=== PATIENT | female | born 1980 | race Two or more races ===

== ENCOUNTER 2016-07-15 11:31 | Day surgery (SDC) | payer OTHER ==
[~2016-07-15 11:31] MED LIST: IOPAMIDOL 300 (61%) 30 ML SDV ONE; IV START KIT ONE; LACTATED RINGERS 1,000 ML ONE
[2016-07-15] MEDS ORDERED: PROPOFOL 20 ML IV ONE (11:32)
[2016-07-15] MEDS ORDERED: ROCURONIUM BROMIDE 10 MG/ML DOSE IV ONE (11:32)
[2016-07-15] MEDS ORDERED: LIDOCAINE 2% (MULTI DOSE) 10 ML VIAL ONE (11:32)
[2016-07-15] MEDS ORDERED: FENTANYL 100 MCG/2 ML VIAL ONE ×3 (11:33→13:34)
[2016-07-15] MEDS ORDERED: MIDAZOLAM HCL 1 MG/ML 2ML VIAL ONE (11:33)
[2016-07-15] MEDS ORDERED: METRONIDAZOLE 500 MG/NS 100 ML 500 MG in Premix (NS) 100 ml 1 EACH IV PRN (11:46)
[2016-07-15] MEDS ORDERED: CEFUROXIME SODIUM 1.5 GRAM 1.5 G in Premix (Water) 50 ml 1 EACH IV PRN (11:46)
[2016-07-15] MEDS ORDERED: LACTATED RINGERS 1,000 ML IV SCH ×2 (11:46→13:00)
[2016-07-15] MEDS ORDERED: LIDOCAINE 1% 2 ML VIAL ID PRN (11:46)
[2016-07-15] MEDS ORDERED: LIDOCAINE 1%/EPI 1:100,000 (MULTI DOSE) 30 ML VIAL ONE (12:11)
[2016-07-15] MEDS ORDERED: METRONIDAZOLE 500 MG/NS 100 ML 100 ML IV ONE (12:15)
[2016-07-15] MEDS ORDERED: CEFUROXIME SODIUM 1.5 GRAM 50 ML IV ONE (12:16)
[2016-07-15 12:31] LABS: ALB/GLOB RATIO 1.3 (>1.0); ALBUMIN 4.1 gm/dL (3.5-5.7); CALCIUM 8.9 mg/dL (8.6-10.3)
[2016-07-15] MEDS ORDERED: HYDROMORPHONE HCL 1 MG/ML SYRINGE IV PRN (12:50)
[2016-07-15] MEDS ORDERED: ONDANSETRON 4 MG/2ML 2 ML VIAL IV PRN ×2 (12:50→14:48)
[2016-07-15] MEDS ORDERED: MEPERIDINE 25 MG/ML SYRINGE IV PRN (12:50)
[2016-07-15] MEDS ORDERED: NALOXONE HCL 0.4 MG/ML VIAL IV PRN (12:50)
[2016-07-15] MEDS ORDERED: FENTANYL 100 MCG/2 ML VIAL IV PRN (12:50)
[2016-07-15] MEDS ORDERED: ATROPINE SULFATE 0.4 MG/1 ML VIAL IV PRN (12:50)
[2016-07-15] MEDS ORDERED: PROMETHAZINE HCL 25 MG/ML VIAL IM PRN (12:50)
[2016-07-15] MEDS ORDERED: DEXAMETHASONE SOD PHOS 4 MG/1 ML VIAL ONE (13:02)
[2016-07-15] MEDS ORDERED: GLYCOPYRROLATE 0.2 MG/ML 1ML VIAL ONE (13:30)
[2016-07-15] MEDS ORDERED: NEOSTIGMINE METHYLSULFATE 1 MG/ML DOSE ONE (13:30)
[2016-07-15] MEDS ORDERED: PROMETHAZINE HCL 25 MG/ML VIAL ONE (14:40)
[2016-07-15] MEDS ORDERED: OXYCODONE/ACETAMINOPHEN 5/325 MG TABLET PO PRN (14:48)
[2016-07-15] MEDS ORDERED: ONDANSETRON 4 MG/2ML 2 ML VIAL ONE (15:28)
--- NOTE | 2016-07-15 16:33 | OP ---
MIKAELA JOHN [id number] DATE OF : 1980 PREPROCEDURE DIAGNOSIS: Acute cholecystitis. POSTPROCEDURE DIAGNOSIS: Acute cholecystitis. PROCEDURE PERFORMED: LAPAROSCOPIC CHOLECYSTECTOMY. SURGEON: Dr. Romana Willoughby DEFLASH AND WASH OPERATOR: Gloria ANESTHESIA: General. FINDINGS: Chronically inflamed gallbladder at the neck. Bile spilled in the abdomen did not look infected. TECHNIQUE: The patient was brought back to the operating room and placed under general anesthesia. The abdomen was prepped and draped in sterile surgical fashion. Local anesthetic was placed just to the right of the umbilicus and a 15-blade scalpel was used to make a less than 1 cm transverse incision. A zero degree scope and 5 mm port were slowly entered into the abdomen. Insufflation was also attached. We carefully looked at all of the layers and once we were into the abdominal cavity the insufflation pushed the abdominal contents away and there was no damage to organs on entry. I then placed an 11 mm port subxiphoid and two 5 mm ports in the right upper quadrant laterally under direct visualization. We grasped the gallbladder and pushed it superiorly, and unfortunately the liver was so large we could not push it as far up as I would like. I used an additional grasper for retraction at the neck of the gallbladder. We were having difficulty with positioning of the bed. There was some tissue initially in the way. At first I dissected the cystic artery out of the surrounding tissue and it was going directly into the gallbladder. This was well-visualized and there was no aberrant branching. I did see that the common duct was well away from where we were at and I put two clips proximally and distally and I divided with Endo Huma. By this time they got the bed in a good position. I dissected around the cystic duct and placed two clips proximal and one distally and divided with Endo Huma. It looked like a giant duct, so this might possibly just have been the distal part of the gallbladder, but it also frightened me a little bit with the width of it. I continued to examine around the area and there is no other duct, and this was going right into the gallbladder, so it was the correct duct. I used hook cautery and took the gallbladder off of the liver bed without issue and put it in an ENDOCATCH bag, and then used the suction irrigation to remove all the spilt bile from the gallbladder and rinsed everything real well. Once everything was cleaned-up, I removed the gallbladder out of the abdomen with the ENDOCATCH bag and closed the muscle with a Serafin-Sharifa and 0-Vicryl. Once the fascia was closed, I closed the skin incisions with 4-0 MONOCRYL. The patient was awakened and returned to the recovery room in stable condition. All needle, instrument and sponge counts were correct at the end of the case.
[2016-07-15] MEDS ORDERED: LACTATED RINGERS 1,000 ML ONE (16:43)
[2016-07-15] MEDS ORDERED: OXYCODONE/ACETAMINOPHEN 5/325 MG TABLET ONE (17:24)
[2016-07-15] MEDS ORDERED: SCOPOLAMINE 1.5 MG/72 HR 1 EACH PATCH TD ONE (18:22)
[2016-07-15 20:13] VITALS: BMI 35.5
[2016-07-15] MEDS ORDERED: PUMP TUBING ONE (20:31)
[2016-07-15] MEDS: LACTATED RINGERS 1,000 ML IV SCH (20:37)
[2016-07-15] MEDS ORDERED: HYDROMORPHONE HCL 0.5 MG/0.5 ML SYRINGE ONE (20:40)
[2016-07-15] MEDS: HYDROMORPHONE HCL 1 MG/ML SYRINGE IV PRN (20:42)
[2016-07-16] MEDS ORDERED: HYDROMORPHONE HCL 0.5 MG/0.5 ML SYRINGE ONE (03:36)
[2016-07-16] MEDS: HYDROMORPHONE HCL 1 MG/ML SYRINGE IV PRN (03:39)
[2016-07-16] MEDS: LACTATED RINGERS 1,000 ML IV SCH (07:43)
[2016-07-16 08:55] VITALS: BP 101/61
--- NOTE | 2016-07-20 13:45 | SURGPATH ---
[facility] [address] [place] [id number] Patient Name: MIKAELA FRASER MR#: [id number] : 1980 Gender: F Specimen #: [id number] Collected: 07/15/2016 Received: 07/19/2016 Reported: 07/20/2016 Submitting Phys: ANAY GUERRA Copy To Phys: FINA PERDUE [facility] Clinical History / Pre-Operative Diagnosis: Acute cholecystitis with cholelithiasis Specimen Source / Surgical Procedure Performed: Gallbladder Interpretation: GALLBLADDER, CHOLECYSTECTOMY: - CHRONIC CHOLECYSTITIS. CHOLELITHIASIS. Electronically Signed Out Fabian Wilcox M.D. Gross Description: The specimen is received in formalin labeled with the patient's name and "gallbladder". The specimen consists of a 6.0 x 2.0 x 2.0 cm disrupted gallbladder. The mucosa is brown and velvety. There are a few dark brown jagged 0.5-0.7 cm calculi. 1A insurance claims representative including cystic duct VICKI Butt Microscopic Description: Microscopic performed. 1: 42552 K81.1
== END 2016-07-16 10:23 | disposition home or self-care (01) ==
LOC: SDC 11:31 → MS 19:05 → SDC 07-16 10:23
PROVIDERS: ATTEND Surgery
PROC: 0FT44ZZ Resection of Gallbladder, Percutaneous Endoscopic Approach (ICD-10-PCS; principal; 2016-07-15)
DX: K80.10 Calculus of gallbladder with chronic cholecystitis without obstruction (principal); K21.9 Gastro-esophageal reflux disease without esophagitis; K59.09 Other constipation; F41.8 Other specified anxiety disorders; G43.709 Chronic migraine without aura, not intractable, without status migrainosus; D50.9 Iron deficiency anemia, unspecified; E66.9 Obesity, unspecified; Z68.38 Body mass index [BMI] 38.0-38.9, adult; Z88.5 Allergy status to narcotic agent
CPT/HCPCS: 47562; 80053; J3010 ×3; J1100; A9270 ×2; J2550; J2250; J2001 ×2; J2405 ×2; J7120 ×3; J7030; J0697; Q9967; J1170 ×2

== ENCOUNTER 2016-07-24 19:37 | Emergency (ER) | payer OTHER | END 2016-07-24 22:04 | disposition home or self-care (01) | LOC: ED 19:37 | DX: Z09 Encounter for follow-up examination after completed treatment for conditions other than malignant neoplasm (principal); Z79.899 Other long term (current) drug therapy ==

== ENCOUNTER 2016-08-14 21:23 | Emergency (ER) | payer OTHER ==
--- NOTE | 2016-08-15 07:52 | RAD ---
08/15/2016 7:47 AM CHEST - 2 VIEWS History: Cough and fever Comparison: 11/21/2014 Findings: Two views of the chest are obtained. The lungs are clear with out effusion or pneumothorax. The cardiomediastinal silhouette is unremarkable.. The osseous structures are intact.. IMPRESSION: No acute intrathoracic process.
== END 2016-08-14 23:04 | disposition home or self-care (01) ==
LOC: ED 21:23
DX: J20.9 Acute bronchitis, unspecified (principal); J06.9 Acute upper respiratory infection, unspecified